=== PATIENT | male | born 1995 | race Two or more races ===

== ENCOUNTER 2017-09-12 08:00 | Emergency (ER) | payer MEDICAID, OTHER ==
[~2017-09-12] VITALS: Ht 180.3 cm; Wt 127.0 kg
[2017-09-12 08:17] VITALS: BP 130/76
== END 2017-09-12 08:58 | disposition home or self-care (01) ==
LOC: ER 08:00
DX: R52 Pain, unspecified (principal); Z04.1 Encounter for examination and observation following transport accident; V49.49XA Driver injured in collision with other motor vehicles in traffic accident, initial encounter; Y93.89 Activity, other specified; Y99.8 Other external cause status; Y92.410 Unspecified street and highway as the place of occurrence of the external cause